=== PATIENT | male | born 1975 | race Caucasian/White ===

== ENCOUNTER 2022-02-09 14:01 | Emergency (ER) | payer OTHER ==
[2022-02-09] MEDS ORDERED: SULFAMETH/TRIMETH DS 800/160 MG TABLET PO STA (15:54)
--- NOTE | 2022-02-09 15:58 | ED Physician Documentation ---
PD HPI SKIN - Stated complaint Stated Complaint: R HAND SWELLING - Chief complaint Chief Complaint: Wound - History obtained from History obtained from: Patient - Additional information Additional information: The patient comes to the emergency department chief complaint of right hand lesion that is red and inflamed since yesterday. Patient states that he figured it was a cyst at the base of his right thumb just above his wrist, but seem to be growing bigger so he tried to squeeze it yesterday and see if it would pop. He states he woke up this morning and found it to be red and sore and enlarged. The patient states he had a scab overlying and pulled that off, and was able to get some drainage from the area, which. To be pus. Patient also noticed a red streak starting to go up his arm. He states he took ibuprofen and that that has improved the symptoms somewhat. No fevers or chills. He does not feel ill in any other way. No other complaints at this time. Review of Systems Ten Systems: 10 systems reviewed and negative Constitutional: reports: Reviewed and negative Eyes: reports: Reviewed and negative Ears: reports: Reviewed and negative Nose: reports: Reviewed and negative Throat: reports: Reviewed and negative Cardiac: reports: Reviewed and negative Respiratory: reports: Reviewed and negative GI: reports: Reviewed and negative : reports: Reviewed and negative Skin: reports: Lesions Musculoskeletal: reports: Reviewed and negative Neurologic: reports: Reviewed and negative Psychiatric: reports: Reviewed and negative Endocrine: reports: Reviewed and negative Immunocompromised: reports: Reviewed and negative PD PAST MEDICAL HISTORY - Present Medications Home Medications: Ambulatory Orders Medication Instructions Recorded Confirmed Sulfamethox/Trimeth 800/160 1 each PO BID #14 tablet 02/09/22 [Bactrim Ds 800/160] - Allergies Allergies/Adverse Reactions: Allergies Allergy/AdvReac Type Severity Reaction Status Date / Time No Known Drug Allergies Allergy Verified 02/09/22 14:05 PD ED PE NORMAL - Vitals Vital signs reviewed: Yes - General General: Alert and oriented X 3, No acute distress, Well developed/nourished - HEENT HEENT: Atraumatic, PERRL, EOMI, Moist mucous membranes - Neck Neck: Supple, no meningeal sign - Cardiac Cardiac: Strong equal pulses - Respiratory Respiratory: No respiratory distress - Derm Derm: Warm and dry, Other (Indurated, erythematous lesion approximately 1 x 1- 1/2 cm in diameter Overlying base of right first metacarpal bone. Minimal fluctuance. Approximately 2 drops of pus expressible from central wound at apex.) - Extremities Extremities: No deformity - Neuro Neuro: Alert and oriented X 3 - Psych Psych: Normal mood, Normal affect Results - Vitals Vitals: Vital Signs - 24 hr 02/09/22 14:05 Temperature 36.9 C Heart Rate 65 Respiratory 18 Rate Blood Pressure 139/78 H O2 Saturation 96 Oxygen O2 Source Room air PD MEDICAL DECISION MAKING - ED course Complexity details: considered differential, d/w patient ED course: Patient was started on Bactrim in the emergency department. He states he is driving back to his home in [place], [place], tomorrow and can follow-up with his doctor there if needed. Departure - Departure Disposition: 01 Home, Self Care Clinical Impression: Abscess Condition: Stable Instructions: ED Staph Infec Abx Tx Only Prescriptions: Sulfamethox/Trimeth 800/160 [Bactrim Ds 800/160] 1 each PO BID #14 tablet
[2022-02-09 16:01] VITALS: BP 130/86
== END 2022-02-09 16:01 | disposition home or self-care (01) ==
LOC: ED 14:01
DX: L02.511 Cutaneous abscess of right hand (principal)
CPT/HCPCS: 99282; A9270